=== PATIENT | male | born 1970 | race Caucasian/White ===

== ENCOUNTER 2017-07-18 08:21 | Emergency (ER) | payer OTHER ==
[2017-07-18] MEDS ORDERED: AMOXICILLIN/CLAV 875 MG TAB PO (09:00)
[2017-07-18] MEDS: CIPROFLOXACIN 500 MG TAB PO (09:16)
[2017-07-18] MEDS: ACETAMINOPHEN 325 MG TAB PO (09:16)
[2017-07-18] MEDS: CLINDAMYCIN 300 MG CAP PO (09:16)
[2017-07-18] MEDS: LIDOCAINE 1% (MDV) 10 ML INJ INJ (09:17)
[2017-07-18] MEDS: DIPHTH/TET/ACEL PERTUSS (ADULT) 0.5 ML VIAL IM (09:17)
== END 2017-07-18 09:50 | disposition home or self-care (01) ==
LOC: FTE 08:21
DX: S01.81XA Laceration without foreign body of other part of head, initial encounter (principal); S01.511A Laceration without foreign body of lip, initial encounter; W54.0XXA Bitten by dog, initial encounter; Y92.9 Unspecified place or not applicable; Z23 Encounter for immunization
CPT/HCPCS: 12011; 90471; 90715; 99284-25